=== PATIENT | female | born 1970 | race African-American/Black ===

== ENCOUNTER 2016-05-15 09:45 | Emergency (ER) | payer OTHER ==
[~2016-05-15] VITALS: Ht 149.9 cm; Wt 65.8 kg
[~2016-05-15 09:45] MED LIST: AZOR 5-20 MG T1 EACH PO; CYCLOBENZAPRINE10 MG PO; DYAZIDE 37.5-21 EACH PO; ESTRACE0.5 MG PO; HYDROCODON-ACE1 EAC7 PO; NAPROSYN500 MG PO; NORCO 5-325 TA1 EACH PO; TAMSULOSIN HCL0.4 M1 PO
[2016-05-15] MEDS ORDERED: CARISOPRODOL 3350 MG PO (09:58)
[2016-05-15 10:27] LABS: ABSOLUTE NEUTROPHILS 4.5 thou/uL (1.4-8.2); BASOPHILS 0.8 % (0.0-2.0); EOSINOPHILS 0.2 % (0.0-3.0); HEMATOCRIT 41.7 % (37.0-47.0); HEMOGLOBIN 13.8 gm/dL (12.0-15.0); LYMPHOCYTES 46.8 % (24.0-44.0); MCH 29.6 pg (26.0-34.0); MCHC 33.2 % (28.0-37.0); MONOCYTES 6.7 % (1.0-8.0); PLATELET COUNT 326 thou/uL (150-400); POLYS 45.5 % (36.0-66.0); RBC 4.68 mil/uL (4.20-5.00); WBC 9.9 thou/uL (4.0-11.0)
[2016-05-15 10:28] LABS: MANUAL DIFF NO
[2016-05-15 10:32] LABS: CALCIUM 9.7 mg/dL (8.5-10.1); CREATININE 0.8 mg/dL (0.6-1.3); POTASSIUM 3.3 mmol/L (3.5-5.1)
[2016-05-15 10:49] LABS: URINE BILIRUBIN NEGATIVE (Negative); URINE BLOOD NEGATIVE (Negative); URINE COLOR YELLOW; URINE GLUCOSE-RANDOM* NEGATIVE (Negative); URINE KETONES NEGATIVE (Negative); URINE LEUKOCYTES-REFLEX NEGATIVE (Negative); URINE PROTEIN (DIPSTICK) NEGATIVE (Negative); URINE UROBILINOGEN 0.2 E.U./dl (0.2-1.0)
[2016-05-15] MEDS ORDERED: PERCOCET 5-3251 EACH PO (12:35)
[2016-05-15] MEDS ORDERED: NAPROSYN500 MG PO (12:35)
[2016-05-15 12:47] VITALS: BP 125/89
== END 2016-05-15 12:50 | disposition home or self-care (01) ==
LOC: ER 09:45
PROVIDERS: Emergency Medicine
DX: M54.16 Radiculopathy, lumbar region (principal); G89.29 Other chronic pain; I10 Essential (primary) hypertension; Z90.710 Acquired absence of both cervix and uterus; Z88.3 Allergy status to other anti-infective agents

== ENCOUNTER → 2019-05-19 | Outpatient (CLI) | payer OTHER ==
[~2019-05-19] VITALS: Ht 180.3 cm; Wt 79.8 kg
[~2019-05-19] MED LIST changes: +CARISOPRODOL 3350 MG PO; +FLEXERIL PO; +IBUPROFEN 800800 M1 PO; +MEDROLDOSEPACK PO; +MELOXICAM15 MG PO; +MOBIC15 MG PO; +PERCOCET 5-3251 EACH PO
[2019-05-19 13:12] VITALS: BP 144/99
--- NOTE | 2019-05-19 13:44 | NUR ---
Pain Clinic Assessment: 1. History of Osteoarthritis: SPINAL History of Rheumatoid Arthritis: 2. Height: 5 ft. 11 in. 180.3 cm. Weight: 176.0 lb. oz. 79.833 kg. Patient's BMI: 24.6 3. Vital Signs: BP: 144/99 Pulse: 117 Resp: 16 Temp: 02 Sat: 99 ECG Mon: 4. Pain Intensity: 8 5. Fall Risk: Dizziness: N Needs help standing or walking: N Fallen in the last 3 months: N Fall risk comments: 6. Patient on Blood Thinner: None 7. History of Hypertension: Y 8. Opioid Therapy greater than 6 weeks: Y Opiate Contract Signed: 9. Risk Assessment Tool Provided: 10. Functional Assessment Tool: 11. Recreational Drug Use: Never Drug Type: Tobacco Use: Never Smoker Tobacco Type: Amount or Packs/day: How Many Years: Alcohol Use: No Frequency: Quant:
--- NOTE | 2019-05-28 08:40 | HPC ---
[place] [address] PAIN MANAGEMENT CONSULTATION Name: ROMINA MENDOZA Room #: REG DEANDRA SimmsGeoff#: [id number] Admission: 05/19/19 Attend Phys: Fadi Chaves MD Discharge: Date of : 72 Report #: [id number] THIS REPORT FOR: cc: Naty Barber MD,Naty Chaves,Fadi Quick MD ~ THIS REPORT FOR: //name// CC: Fadi Barber DATE OF SERVICE: 05/19/2019 CHIEF COMPLAINT: Back pain, right hip and right leg pain. HISTORY: The patient is a 49-year-old female, who has been referred to the Pain Clinic because of chronic pain. The patient states that she is having some pain in her lower back in the mid portion of her back. She has had back pain dating back greater than 15 years. She has undergone physical therapy about 3 years ago. She states that she did have a nerve block about 3 years ago. Also had an epidural injection about 9 years ago. She has not had back surgery. She has undergone chiropractic treatment about 4 years ago. She felt that the chiropractic treatment was a bad experience. She has used nonsteroidal anti-inflammatory medications. She is using ibuprofen 800 mg. She has in the past used hydrocodone. She has used muscle relaxant, Flexeril. She states that she has had an x-ray in the back and has had some onset of sacroiliitis. She has been on family medical leave. Notes that prolonged standing exacerbates her discomfort. She has not had surgery in the back area. She does feel that there is a numbness and heaviness involving her low back area. Pain is mostly in the area of the L2-L3 nerve area. ALLERGIES: THE PATIENT WAS TRIALED ON GABAPENTIN, SHE WAS UNABLE TO TOLERATE IT. MEDICATIONS: Cyclobenzaprine 10 mg t.i.d. p.r.n. muscle spasms, ibuprofen 800 mg q. 8 hours p.r.n., hydrocodone 5/325 one p.o. p.r.n., amlodipine/olmesartan /20, Estrace 0.5 mg. PAST MEDICAL HISTORY: 1. Scoliosis, thoracic spine; degenerative disk disease, thoracic spine; back pain, thoracic region. 2. Low back pain. 3. History of meniscus tear. 4. History of endometriosis. 5. Allergic rhinitis. 6. Irritable bowel syndrome. [address] [place] [address] PAIN MANAGEMENT CONSULTATION Name: ROMINA MENDOZA [id number] Admission: 05/19/19 Attend Phys: Fadi Chaves MD Discharge: Date of : 72 Report #: [id number] 7. Hypertension. 8. Depression. PAST SURGICAL HISTORY: x 1, total abdominal hysterectomy with BSO in ____ due to endometriosis, knee surgery, arthroscopy, abdominal surgery, diagnostic laparoscopy in 02/2003 with lysis of pelvic and abdominal adhesions, femoral hernia repair 2004. REVIEW OF SYSTEMS: Questionnaire, headaches, wears glasses, blurred vision, hearing loss, earaches, constipation, lightheadedness, dizziness, numbness and tingling sensation, depression. DIAGNOSTIC DATA: MRI of the lumbar spine dated 05/15/2016 findings: 1. Alignment of the lumbar spine is satisfactory with minimal right convexity thoracolumbar curvature. No abnormal signal intensity seen within the spine. 2. L5-S1: Mild facet degenerative changes with minimal bulging without stenosis. 3. L4-L5: A very slight bulging noted with slight inferior neuroforaminal narrowing on the right. Mild facet changes without stenosis or disk protrusion. 4. L3-L4: Negative. 5. L2-L3: Negative. 6. Distal cord: No distal spinal cord abnormalities are seen. Slight anterior spurring in the lower thoracic spine noted at T10-T11. PAIN CLINIC ASSESSMENT AND PQRS: 1. History of osteoarthritis involving the spine. The patient is not being treated for rheumatoid arthritis. 2. Height 5 feet 11 inches, weight 176 pounds, BMI is 24.6. 3. Vital signs: Blood pressure 144/99, pulse 117, respiratory rate 16, room air saturation 99%. 4. Pain intensity: 8/10. 5. Fall history: The patient has not fallen in the last 3 months. 6. Blood thinner: The patient is not on a blood thinning medication. 7. Hypertension: The patient is being treated for hypertension. 8. Opioids greater than 6 weeks: The patient receives medications from one source from her primary physician. 9. Recreational drug use: The patient denies. 10. Tobacco: The patient has never smoked. 11. Functional assessment tool: 49/70. 12. Alcohol: The patient denies frequent use of alcoholic beverages. PHYSICAL EXAMINATION: GENERAL: The patient is a well-developed, well-nourished, black female. Appears her stated age. She is alert and oriented x 3. Her affect is appropriate. Speech is fluent. HEENT: Normocephalic, atraumatic. Extraocular eye muscles intact. Sclerae [address] [place] [address] PAIN MANAGEMENT CONSULTATION Name: ROMINA MENDOZA Room #: REG DEANDRA Virgen#: [id number] Admission: 05/19/19 Attend Phys: Fadi Chaves MD Discharge: Date of : 72 Report #: [id number] nonicteric. Mucous membranes are moist. NECK: Without adenopathy or JVD. HEART: Regular rate. ABDOMEN: Nontender. MUSCULOSKELETAL: The patient has some pain and discomfort in the lower portion of her back. States that there is discomfort in the low back area, particularly in the area of the right hip, which is sometimes burning and throbbing. She has a perception of some swelling in her leg. Pain is worse with prolonged standing. She has pain across the mid portion of the back at approximately the lumbar thoracic area. She has some pain and discomfort in the area of the right sciatic outflow tract area. She has pain and discomfort in the right anterior portion of her leg in the L2-L3 dermatomal distribution. The patient has perception of feeling of numbness and heaviness as well as swelling. Forward bending to 80 degrees cause some increased low back discomfort. The patient is able to bend forward and almost touch her toes. She is able to lean back on her heels and toes without significant problem. Notes some pain and discomfort in the low back area, particularly with right lateral bending and lumbar extension. IMPRESSION: 1. Lumbar radicular pain in the L2-L3 dermatomal distribution on the right side, anterior. The patient has some perception of numbness, swelling and heaviness with movement of the right leg. 2. Scoliosis, thoracic spine; degenerative disk disease, thoracic spine; back pain, thoracic region. 3. Low back pain. 4. History of meniscus tear. 5. History of endometriosis. 6. Allergic rhinitis. 7. Irritable bowel syndrome. 8. Hypertension. 9. Depression. RECOMMENDATIONS: We discussed treatment options with the patient. At this juncture, she is in agreement with trying a conservative approach. We will have the patient try a conservative approach and she will try Medrol Dosepak. Risks and benefits of steroid use has been discussed. The patient will also can try meloxicam 15 mg daily, she will take this in place of ibuprofen and she will not take the two of them together. Hopefully, she will find that her pain continues to improve. Hopefully, she has less numbness, heaviness, and the perception of swelling on the right leg in the L2-L3 dermatomal distribution. Should her pain persists, we would then proceed with an epidural steroid injection at the L2-L3 level. Risks and benefits of the procedure has been discussed with the patient, which could include infection, worsening of pain, no improvement in pain, nerve damage, bleeding, and spinal headache. We will reiterate and review these possible complications with the patient on her return if her pain continues to be problematic. [address] [address] PAIN MANAGEMENT CONSULTATION Name: ROMINA MENDOZA Room #: REG CLDonald Virgen#: [id number] Admission: 05/19/19 Attend Phys: Fadi Chaves MD Discharge: Date of : 72 Report #: [id number] We would like to thank you for letting us participate in her care. We hope she continues to improve. <ELECTRONICALLY SIGNED> By: Fadi Chaves MD 05/28/19 0840 [id number] Fadi Chaves MD /nt
== END ==
LOC: PAIN 07:01
DX: M51.34 Other intervertebral disc degeneration, thoracic region (principal); M41.84 Other forms of scoliosis, thoracic region; I10 Essential (primary) hypertension; F32.9 Major depressive disorder, single episode, unspecified; Z79.899 Other long term (current) drug therapy; Z79.891 Long term (current) use of opiate analgesic

== ENCOUNTER → 2019-05-28 | Outpatient (CLI) | payer OTHER ==
[~2019-05-28] VITALS: Ht 180.3 cm; Wt 82.0 kg
[2019-05-28 10:10] VITALS: BP 138/92
--- NOTE | 2019-05-28 10:23 | NUR ---
Pain Clinic Assessment: 1. History of Osteoarthritis: SPINAL History of Rheumatoid Arthritis: NONE 2. Height: 5 ft. 11 in. 180.3 cm. Weight: 180.8 lb. oz. 82.010 kg. Patient's BMI: 25.2 3. Vital Signs: BP: 138/92 Pulse: 106 Resp: 14 Temp: 02 Sat: 100 ECG Mon: 4. Pain Intensity: 8 5. Fall Risk: Dizziness: N Needs help standing or walking: N Fallen in the last 3 months: N Fall risk comments: 6. Patient on Blood Thinner: None 7. History of Hypertension: Y 8. Opioid Therapy greater than 6 weeks: Y Opiate Contract Signed: 9. Risk Assessment Tool Provided: DR HERNANDEZ 10. Functional Assessment Tool: 11. Recreational Drug Use: Never Drug Type: Tobacco Use: Never Smoker Tobacco Type: Amount or Packs/day: How Many Years: Alcohol Use: No Frequency: Quant:
--- NOTE | 2019-06-02 13:33 | HPC ---
[facility] [place] [address] PAIN MANAGEMENT CONSULTATION Name: ROMINA MENDOZA [id number] Admission: 05/28/19 Attend Phys: Fadi Chaves MD Discharge: Date of : 72 Report #: [id number] THIS REPORT FOR: cc: Naty Barber MD,Naty Chaves,Fadi Quick MD ~ THIS REPORT FOR: //name// CC: Fadi Barber DATE OF SERVICE: 05/28/2019 CHIEF COMPLAINT: Here for an epidural injection. I am still having the pain down my right side and into the front of my thigh. HISTORY: The patient is a 49-year-old female who has been seen in the pain clinic because of pain, which she has been experiencing in the low back area. She has had some history of chronic pain dating back to greater than 15 years. Her last episode of physical therapy was about 3 years ago. She has been experiencing pain that radiates down into her right leg with numbness and tingling as well as some perception of weakness in the upper thigh area. She has returned today for an epidural steroid injection. Pain is exacerbated with prolonged standing. She has not had back surgery. ALLERGIES: GABAPENTIN was not tolerated. CURRENT MEDICATIONS: Cyclobenzaprine 10 mg 1 p.o. t.i.d., ibuprofen 800 mg q. 8 hours p.r.n., hydrocodone 5/325, amlodipine/olmesartan 5/20, and Estrace 0.5 mg. PAIN CLINIC ASSESSMENT AND PQRS: 1. The patient has history of osteoarthritis involving her spine. She is not being treated for rheumatoid arthritis. 2. Height 4 feet 11 inches, weight 180 pounds, BMI to be calculated. 3. Vital Signs: Blood pressure 138/92, pulse 106, respiratory rate 14, room air saturation 100%. 4. Pain intensity 8/10. 5. Fall history: The patient has not fallen in the last 3 months. 6. Blood thinner. The patient is not on a blood thinning medication. 7. Hypertension. The patient is not being treated for hypertension. 8. Opioid therapy greater than 6 weeks. The patient receives medications through her primary physician. 9. Risk assessment tool, low for opioid use. 10. Functional assessment tool 49/70. 11. Recreational drugs: The patient denies. 12. Tobacco: The patient has never smoked. [address] [address] PAIN MANAGEMENT CONSULTATION Name: ROMINA MENDOZA EFRAÍN Room #: REG CLI [facility]#: [id number] Admission: 05/28/19 Attend Phys: Fadi Chaves MD Discharge: Date of : 72 Report #: [id number] 13. Alcohol: The patient denies frequent use of alcoholic beverages. PHYSICAL EXAMINATION: GENERAL: The patient is a well-developed, well-nourished black female, appears her stated age. She is alert and oriented x 3. Her affect is appropriate. Speech is fluent. HEENT: Normocephalic, atraumatic. Extraocular eye muscles intact. Sclerae nonicteric. Mucous membranes are moist. NECK: Without adenopathy or JVD. HEART: Regular rate. S1, S2. ABDOMEN: Nontender. Bowel sounds present. MUSCULOSKELETAL: Upper extremity muscle strength judged to be 5/5 for the major muscle groups in the upper extremity. The patient without significant scoliosis, kyphosis or lordosis. The patient has pain in the L2-L3 dermatomal distribution with pain in the lower back and buttocks area with pain wrapping around into the anterior portion of her thigh with perception of numbness, weakness, and feeling of heaviness and swelling in the L2-L3 dermatomal distribution. IMPRESSION: 1. Lumbar radiculopathy with pain in the L2-L3 dermatomal distribution on the right. 2. Low back pain. 3. History of meniscus tear. 4. History of endometriosis. 5. Allergic rhinitis. 6. Irritable bowel syndrome. 7. Hypertension. 8. Depression. RECOMMENDATIONS: We discussed treatment options with the patient. Risks and benefits of an epidural steroid injection were discussed. Possible complications of the procedure, which, which could include but are not limited to infection, worsening pain, no improvement in pain, nerve damage, spinal headache were discussed. The patient elects to proceed. PROCEDURE NOTE: The patient was taken to the procedure area. We had again discussed the pain, radicular pattern. It continues to be in the area of the L2-L3 with pain radiating into the anterior portion of her thigh. She was assisted in getting on examination table. Her back was sterilely prepped with a Betadine solution. A 0.25% bupivacaine was infiltrated into the area of the L2-L3 area. This area was sterilely prepped with a Betadine solution and allowed to dry. A 17-gauge Tuohy with loss of resistance technique was then used to gain access to the epidural space. There was no CSF, heme or paresthesia. Total of 80 mg Depo-Medrol, 40 mg triamcinolone and 2 mL of 0.25% bupivacaine was injected. The patient tolerated the procedure well. There were [address] [address] PAIN MANAGEMENT CONSULTATION Name: ROMINA MENDOZA Room #: REG CLDonald Simms#: [id number] Admission: 05/28/19 Attend Phys: Fadi Chaves MD Discharge: Date of : 72 Report #: [id number] no complications. Total of 10 seconds fluoroscopy time was used. We would like to thank you for letting us participate in her care. We hope she continues to improve. <ELECTRONICALLY SIGNED> By: Fadi Chaves MD 06/02/19 1333 [id number] Fadi Chaves MD /nt
== END | disposition home or self-care (01) ==
LOC: PAIN 06:53
DX: M54.16 Radiculopathy, lumbar region (principal); G89.29 Other chronic pain; I10 Essential (primary) hypertension; F32.9 Major depressive disorder, single episode, unspecified; Z98.890 Other specified postprocedural states; Z79.899 Other long term (current) drug therapy; Z88.8 Allergy status to other drugs, medicaments and biological substances; Z79.891 Long term (current) use of opiate analgesic

== ENCOUNTER → 2020-04-12 | Outpatient (CLI) | payer OTHER ==
[~2020-04-12] VITALS: Ht 149.9 cm; Wt 80.5 kg
[2020-04-12 08:19] VITALS: BP 138/94
--- NOTE | 2020-04-12 08:41 | NUR ---
Pain Clinic Assessment: 1. History of Osteoarthritis: SPINAL History of Rheumatoid Arthritis: NONE 2. Height: 4 ft. 11 in. 149.9 cm. Weight: 177.4 lb. oz. 80.468 kg. Patient's BMI: 35.8 3. Vital Signs: BP: 138/94 Pulse: 111 Resp: 16 Temp: 02 Sat: 95 ECG Mon: 4. Pain Intensity: 8-9 5. Fall Risk: Dizziness: N Needs help standing or walking: N Fallen in the last 3 months: N Fall risk comments: 6. Patient on Blood Thinner: None 7. History of Hypertension: Y 8. Opioid Therapy greater than 6 weeks: Y Opiate Contract Signed: 9. Risk Assessment Tool Provided: DR HERNANDEZ 10. Functional Assessment Tool: 11. Recreational Drug Use: Never Drug Type: Tobacco Use: Never Smoker Tobacco Type: Amount or Packs/day: How Many Years: Alcohol Use: No Frequency: Quant:
== END | disposition home or self-care (01) ==
LOC: PAIN 06:46
PROVIDERS: ATTEND Anesthesiology Pain Medicine
DX: M54.16 Radiculopathy, lumbar region (principal); G89.29 Other chronic pain; I10 Essential (primary) hypertension; F32.9 Major depressive disorder, single episode, unspecified; M19.90 Unspecified osteoarthritis, unspecified site; Z98.890 Other specified postprocedural states; Z79.899 Other long term (current) drug therapy; Z87.442 Personal history of urinary calculi; Z90.710 Acquired absence of both cervix and uterus; Z88.8 Allergy status to other drugs, medicaments and biological substances

== ENCOUNTER → 2021-03-09 | Outpatient (CLI) | payer OTHER ==
[~2021-03-09] VITALS: Ht 149.9 cm; Wt 81.2 kg
[2021-03-09 09:42] VITALS: BP 138/80
--- NOTE | 2021-03-09 09:48 | NUR ---
Pain Clinic Assessment: 1. History of Osteoarthritis: SPINAL History of Rheumatoid Arthritis: NONE 2. Height: 4 ft. 11 in. 149.9 cm. Weight: 179.0 lb. oz. 81.194 kg. Patient's BMI: 36.1 3. Vital Signs: BP: 138/80 Pulse: 112 Resp: 16 Temp: 02 Sat: 100 ECG Mon: 4. Pain Intensity: 8-9 5. Fall Risk: Dizziness: N Needs help standing or walking: N Fallen in the last 3 months: N Fall risk comments: 6. Patient on Blood Thinner: None 7. History of Hypertension: Y 8. Opioid Therapy greater than 6 weeks: Y Opiate Contract Signed: 9. Risk Assessment Tool Provided: DR HERNANDEZ 10. Functional Assessment Tool: 11. Recreational Drug Use: Never Drug Type: Tobacco Use: Never Smoker Tobacco Type: Amount or Packs/day: How Many Years: Alcohol Use: No Frequency: Quant:
== END | disposition home or self-care (01) ==
LOC: PAIN 09:05
PROVIDERS: ATTEND Anesthesiology Pain Medicine
DX: M54.16 Radiculopathy, lumbar region (principal); G89.29 Other chronic pain; Z98.890 Other specified postprocedural states; Z79.899 Other long term (current) drug therapy; Z88.8 Allergy status to other drugs, medicaments and biological substances